=== PATIENT | female | born 1960 | race Caucasian/White ===

== ENCOUNTER 2020-10-31 10:40 | Outpatient (CLI) | payer OTHER ==
--- NOTE | 2020-10-31 14:24 | Ultrasound Report ---
BILATERAL DIGITAL DIAGNOSTIC MAMMOGRAM WITH CAD CONVENTIONAL, 10/31/2020 LEFT LIMITED BREAST ULTRASOUND CLINICAL INFORMATION / INDICATION: Left breast mass. TECHNIQUE: Digital bilateral mammographic imaging was performed. Spot compression views were obtained . Limited ultrasound was performed. This examination was interpreted with the benefit of Computer-Aid ed Detection (CAD) analysis. COMPARISON: Not available. FINDINGS: Breast Density: There are scattered areas of fibroglandular density. MAMMOGRAPHIC FINDINGS: No dominant mass, suspicious calcifications, or architectural distortion in th e right breast. At the site of the palpable abnormality in the 9-10:00 position posterior depth is a mass abutting th e pectoral muscle and measuring 1.3 x 0.9 cm. Adjacent to the mass in linear distribution are pleomor phic calcifications located along the posterior and middle depths at the level of the mass spanning a distance of approximately 5 cm. Benign-appearing calcifications are seen anteriorly along the upper inner left breast and central left breast. ULTRASOUND FINDINGS: Targeted ultrasound evaluation was performed of the area of interest. At the s ite of the palpable abnormality along the 10:00 position 15 cm from the nipple, is a spiculated hypoe choic solid mass measuring 1.0 x 0.9 x 0.7 cm without internal color flow or posterior acoustic shado wing. This mass demonstrates angular margins. No other significant abnormality is identified. IMPRESSION: Highly suspicious left breast mass with adjacent suspicious calcifications as above, whic h are concerning for malignancy until proven otherwise and may represent invasive ductal carcinoma wi th associated DCIS. Biopsy of the mass with ultrasound guidance is recommended. Follow up recommendation: Biopsy BI-RADS Category 5: Highly Suggestive of Malignancy. A "normal" or negative report should not discourage follow up or biopsy of a clinically significant f inding. A written summary of these findings will be mailed to the patient. The patient will be entered into a mammography reporting system which will generate a reminder letter for the patient's next appointmen t at the appropriate interval. According to the [employer], yearly mammograms are recommended starting at age 40 and continuing as long as a woman is in good health. Breast MRI is recommended for women with an porsche roximately 20-25% or greater lifetime risk of breast cancer, including women with a strong family his tory of breast or ovarian cancer and women who have been treated for Hodgkin's disease. Signer Name: Keith Gaspar MD Signed: 10/31/2020 2:19 PM Workstation Name: [id number]
== END 2020-10-31 10:41 | disposition home or self-care (01) ==
LOC: MAMMO 10:40
DX: N63.20 Unspecified lump in the left breast, unspecified quadrant (principal); R92.8 Other abnormal and inconclusive findings on diagnostic imaging of breast
CPT/HCPCS: 77066